=== PATIENT | female | born 1990 | race Caucasian/White ===

== ENCOUNTER 2016-10-11 11:17 | Emergency (ER) | payer SELFPAY ==
[~2016-10-11] VITALS: Ht 162.6 cm; Wt 70.0 kg
[2016-10-11 11:39] VITALS: Ht 162.6 cm; Wt 70.0 kg
[2016-10-11 15:04] LABS: URINE BLOOD (Dip) POC Trace-lysed (NEGATIVE)
[2016-10-11] MEDS ORDERED: IBUP-1542 PO (15:12)
[2016-10-11] MEDS ORDERED: CEPH-443 PO (15:13)
[2016-10-11] MEDS ORDERED: ONDA4TAB14 PO (15:20)
[2016-10-11] MEDS ORDERED: ACET325T33 PO (15:20)
[2016-10-11] MEDS ORDERED: ACETAMINOPHEN 325 MG TAB PO ONE (15:30)
[2016-10-11 15:34] VITALS: BP 158/107; PULSE 116; RESP 20; TEMP 98.5
--- NOTE | 2016-10-11 15:35 | ERA ---
ER Documentation Chief Complaint Date/Time DATE: 10/11/16 TIME: 15:27 Chief Complaint VOMITING,HEADACHE SINCE THIS AM HPI Patient is a 26-year-old female from [facility] presenting with her boyfriend. Patient has a chief complaint of nausea and headache. Denies any medical conditions. Patient has had symptoms for roughly 2 months. Patient denies any worsening or relieving factors of the symptoms. Patient has vomited lately but is able to tolerate p.o. Reports small amounts of diarrhea. Quantifies the diarrhea as once per week. Patient denies any dysuria, hematuria, constipation , chest pain, vaginal bleeding, discharge, shortness of breath, dysphagia, odynophagia, difficulty breathing, worse headache of life, thunderclap headache , calf pain, edema ROS All systems reviewed and are negative except as per history of present illness. Medications Home Meds Active Scripts Acetaminophen* (Tylenol*) 325 Mg Tablet, 1 TAB PO Q6 Y for PAIN AND OR ELEVATED TEMP, #20 TAB Prov:CHELSEY ESCOBAR PA-C 10/11/16 Ondansetron (Ondansetron Odt) 4 Mg Tab.rapdis, 4 MG PO Q6H Y for NAUSEA AND/OR VOMITING, #10 TAB Prov:CHELSEY ESCOBAR PA-C 10/11/16 Cephalexin* (Keflex*) 500 Mg Capsule, 500 MG PO QID for 5 Days, CAP Prov:CHELSEY ESCOBAR PA-C 10/11/16 Discontinued Scripts Ibuprofen* (Motrin*) 600 Mg Tab, 600 MG PO Q6H Y for PAIN AND OR ELEVATED TEMP, #30 TAB Prov:CHELSEY ESCOBAR PA-C 10/11/16 PMhx/Soc Medical and Surgical Hx: pt denies Medical Hx, pt denies Surgical Hx Hx Alcohol Use: No Hx Substance Use: No Hx Tobacco Use: No Smoking Status: Never smoker Physical Exam Vitals Vital Signs Date Time Temp Pulse Resp B/P Pulse Ox O2 Delivery O2 Flow Rate FiO2 10/11/16 11:39 98.2 115 18 135/95 100 Physical Exam Const: Well-appearing 26-year-old female presenting with her in no acute distress. Head: Atraumatic Eyes: Normal Conjunctiva ENT: Normal External Ears, Nose and Mouth. Neck: Full range of motion..~ No meningismus. Resp: Clear to auscultation bilaterally Cardio: Regular rate and rhythm, no murmurs Abd: Soft, non tender, non distended. Normal bowel sounds. Negative psoas sign no McBurney's point tenderness. Skin: No petechiae or rashes Back: No midline or flank tenderness Ext: No cyanosis, or edema Neur: Awake and alert Psych: Normal Mood and Affect Results 24 hrs Laboratory Tests Test 10/11/16 15:04 Bedside Urine pH (LAB) 7.5 Bedside Urine Protein (LAB) Negative Bedside Urine Glucose (UA) Negative Bedside Urine Ketones (LAB) Negative Bedside Urine Blood Trace-lysed Bedside Urine Nitrite (LAB) Negative Bedside Urine Leukocyte Esterase (L Trace Current Medications Medications (Trade) Dose Ordered Sig/Viktor Route PRN Reason Start Time Stop Time Status Last Admin Dose Admin Acetaminophen (Tylenol Tab) 325 mg ONCE ONCE PO 10/11/16 15:30 10/11/16 15:31 10/11/16 15:14 Procedures/MDM Patient is a 26-year-old female with a chief complaint of chronic abdominal pain /nausea and headache. Reports recent vomiting. Has had similar symptoms in the past that have subsided on their own. Went ahead and got a urine test and a urine dipstick to rule out any infection of the urinary tract and . Patient had negative pelvic test had positive leukocyte esterase. We will go ahead and treat the urinary tract infection with Keflex. Patient had no signs of appendicitis and is well-appearing. Patient is able to tolerate p.o. and has been eating and drinking in the waiting room. Patient has no fever this time and vitals are stable. [employer] has been nurse. Patient is fine back to [facility] and have advised that she not fly if symptoms progress do not subside. We will go ahead and discharge with return precautions. Have educated the patient possible worsening GI symptoms. Departure Diagnosis: Primary Impression: Urinary tract bacterial infections Additional Impressions: Nausea & vomiting Qualified Code: R11.2 - Nausea and vomiting, intractability of vomiting not specified, unspecified vomiting type Headache Qualified Code: G44.201 - Acute intractable tension-type headache Condition: Stable Patient Instructions: Understanding Urinary Tract Infections (UTIs) Additional Instructions: Follow up with your PCP within the next 1-3 days for a more thorough evaluation and a possible referral to a specialist. Return the the emergency department immediately if symptoms worsen or change. If you have any questions regarding medications, ask your pharmacist or us before you leave. If any adverse reactions occur while taking your medications, discontinue the treatment and return to the emergency department immediately. Take your medications as directed, and complete the entire course of treatment. CHELSEY ESCOBAR PA-C Oct 11, 2016 15:35
== END 2016-10-11 15:35 | disposition home or self-care (01) ==
LOC: FTE 11:17
DX: N39.0 Urinary tract infection, site not specified (principal); R11.2 Nausea with vomiting, unspecified; G44.201 Tension-type headache, unspecified, intractable
CPT/HCPCS: 81003; 99284